=== PATIENT | female | born 1960 | race Two or more races ===

== ENCOUNTER → 2024-06-29 | Outpatient (CLI) | payer MEDICAID, SELFPAY ==
--- NOTE | 2024-06-29 | XR_ITS ---
Examination: Thoracic spine 3 views Technique one AP lateral coned lateral upper dorsal spine 3 views Exam date and time: June 29, 2024 1610 hrs. Indications: Upper back pain beginning one month ago. Findings: Lower thoracic levoscoliosis 13 degrees No thoracic fracture Prominent osteopenia Mild diffuse thoracic disc narrowing Impression: Thoracic levoscoliosis 13 degrees Mild diffuse thoracic degenerative disc disease
--- NOTE | 2024-06-29 15:55 | XR_ITS ---
Examination: PA lateral chest 2 views Technique: Upright PA lateral chest 2 views Exam date and time: June 29, 2024 1608 hrs. Indications: Chest pain beginning one month ago. Findings: Mild prominence left ventricle Mild vascular congestion Accentuation basilar bronchovascular markings No lobar pneumonia Impression: Basilar bronchitis pattern
--- NOTE | 2024-06-29 15:57 | XR_ITS ---
Examination: Right knee 4 views Technique: AP oblique lateral axial right knee 4 views Exam date and time: June 29, 2024 1607 hrs. Indications: Patient fell 15 days ago with injury to the knee, knee pain. Findings: No fracture or patellar dislocation Mild to moderate tricompartment osteoarthritis Impression: No fracture or dislocation
== END | disposition home or self-care (01) ==
LOC: CDIM 15:33
PROVIDERS: PCP Physician Assistant; Referring Provider Physician Assistant; Visit Provider Physician Assistant
DX: R07.9 Chest pain, unspecified (principal); S89.91XA Unspecified injury of right lower leg, initial encounter; W19.XXXA Unspecified fall, initial encounter; M41.84 Other forms of scoliosis, thoracic region; M51.34 Other intervertebral disc degeneration, thoracic region
CPT/HCPCS: 71046; 72072; 73564